=== PATIENT | male | born 1975 | race Caucasian/White ===

== ENCOUNTER → 2023-11-18 14:18 | Outpatient (BNVA) | payer OTHER, MEDICAID, SELFPAY | PROVIDERS: Family Provider Nurse Practitioner; PCP Nurse Practitioner; Visit Provider Podiatrist Foot & Ankle Surgery | DX: M79.671 Pain in right foot (principal); M79.672 Pain in left foot; M76.821 Posterior tibial tendinitis, right leg; M72.2 Plantar fascial fibromatosis | CPT/HCPCS: 73630 ==